=== PATIENT | female | born 1995 | race African-American/Black ===

== ENCOUNTER 2017-06-17 09:52 | Emergency (ER) | payer BC, OTHER, SELFPAY ==
[2017-06-17] MEDS ORDERED: AMOXicillin 250 MG CAP ONE (11:26)
== END 2017-06-17 11:30 | disposition home or self-care (01) ==
LOC: MADERS 09:52
DX: H01.9 Unspecified inflammation of eyelid (principal)
CPT/HCPCS: 99282

== ENCOUNTER 2017-08-06 09:57 | Emergency (ER) | payer SELFPAY | END 2017-08-06 10:30 | disposition home or self-care (01) | LOC: MADERS 09:57 | DX: H00.014 Hordeolum externum left upper eyelid (principal); E66.9 Obesity, unspecified | CPT/HCPCS: 99283 ==

== ENCOUNTER 2018-02-22 21:12 | Emergency (ER) | payer BC, SELFPAY ==
[2018-02-22] MEDS ORDERED: predniSONE 20 MG TAB ONE (22:01)
== END 2018-02-22 22:05 | disposition home or self-care (01) ==
LOC: MADERS 21:12
DX: J06.9 Acute upper respiratory infection, unspecified (principal); E66.9 Obesity, unspecified
CPT/HCPCS: 87081; 87430; 99283; J7506

== ENCOUNTER 2018-03-22 20:22 | Emergency (ER) | payer BC | END 2018-03-22 20:56 | disposition home or self-care (01) | LOC: MADERS 20:22 | DX: S00.03XA Contusion of scalp, initial encounter (principal); W01.0XXA Fall on same level from slipping, tripping and stumbling without subsequent striking against object, initial encounter | CPT/HCPCS: 99283 ==

== ENCOUNTER 2018-08-20 19:04 | Emergency (ER) | payer BC ==
[2018-08-20 19:57] LABS: #Basophils 0.1 thou/uL (0.0-0.2); #Eosinphils 0.1 thou/uL (0.0-0.7); #Lymphocytes 3.8 thou/uL (1.20-3.40); #Monocytes 0.5 thou/uL (0.11-0.59); #Neutrophils 4.6 thou/uL (1.40-6.50); %Basophils 1.4 % (0.0-1.0); %Eosinophils 0.9 % (0.0-10.0); %Lymphocytes 41.4 % (21.0-51.0); %Monocytes 5.2 % (0.0-10.0); %Neutrophils 51.2 % (42.0-75.0); Hemoglobin 11.8 g/dL (12.0-16.0); Mean Corpuscular HGB CONC 31.6 g/dL (32.0-36.0); Mean Corpuscular Hemoglobin 26.7 pg (27.0-31.0); Mean Corpuscular Volume 84.5 fL (78.0-98.0); Mean Platelet Volume 7.5 fL (7.4-10.4); Platelet Count 333 thou/uL (130-400); RBC Distribution Width 13.5 % (11.5-14.5); Red Blood Cell (RBC) Count 4.43 mill/uL (4.20-5.40); White Blood Cell (WBC) Count 9.1 thou/uL (4.8-10.8)
[2018-08-20] MEDS ORDERED: Ondansetron ODT 4 MG TAB ONE (20:08)
[2018-08-20 20:12] LABS: BHCG - Serum Negative (NEGATIVE); Pregs Control Background? CLEAR/WHITE (CLR/WHITE); Pregs Control Bar Appear? YES (CONTROL BAR)
[2018-08-20 20:17] LABS: ALT (SGPT) 19 U/L (8-55); AST (SGOT) 16 U/L (5-34); Albumin 4.1 g/dL (3.5-5.0); Alkaline Phosphatase 34 U/L (40-150); Anion Gap 15 mmol/L (10-20); BUN (Urea Nitrogen) 7 mg/dL (7.0-18.7); Bilirubin, Total 0.2 mg/dL (0.2-1.2); Calc. Creatinine Clearance 0 mL/min (70-130); Calcium 9.3 mg/dL (7.8-10.44); Carbon Dioxide 25 mmol/L (22-29); Chloride 105 mmol/L (98-107); Estimated GFR-MDRD Greater than 90; Globulin 3.6 g/dL (2.4-3.5); Glucose 103 mg/dL (70-105); Lipase 38 U/L (8-78); Potassium 3.8 mmol/L (3.5-5.1); Protein, Total 7.7 g/dL (6.0-8.3); Sodium 141 mmol/L (136-145)
[2018-08-20 20:27] LABS: Bilirubin Negative (Negative); Blood, Urine Trace (Negative); Clarity Clear (Clear); Glucose, Urine (Dipstick) Negative (Negative); Leukocyte Small (Negative); Nitrite Negative (Negative); Protein, Urine (Dipstick) Negative (Neg-Trace); Urobilinogen 0.2 mg/dL (Less than 2)
[2018-08-20 20:34] LABS: Bacteria/HPF None Seen HPF (None Seen)
[2018-08-20] MEDS ORDERED: Metoclopramide HCl 10 MG TAB ONE (20:43)
== END 2018-08-20 20:40 | disposition home or self-care (01) ==
LOC: MADERS 19:04
DX: D64.9 Anemia, unspecified (principal); R11.2 Nausea with vomiting, unspecified; R19.7 Diarrhea, unspecified; E66.9 Obesity, unspecified
CPT/HCPCS: 36415; 80053; 81003; 81015; 83605; 83690; 84703; 85025; 99284; J8597; Q0162

== ENCOUNTER 2019-04-22 23:23 | Emergency (ER) | payer BC, SELFPAY ==
[2019-04-23] MEDS ORDERED: Donnatal Elixir 16.2 MG/5 ML UDCUP ONE
[2019-04-23] MEDS ORDERED: Lidocaine Viscous Sol 2% 15 ml UD Cup ONE (00:01)
[2019-04-23] MEDS ORDERED: Mag-Al Plus 1200 MG/1200 MG/120 MG/30 ML UDCUP ONE (00:01)
== END 2019-04-23 00:55 | disposition home or self-care (01) ==
LOC: MADERS 23:23
DX: R12 Heartburn (principal)
CPT/HCPCS: 93005

== ENCOUNTER 2019-10-08 07:52 | Outpatient (CLI) | payer OTHER | END 2019-10-08 07:53 | disposition home or self-care (01) | LOC: MADLABBHPM 07:52 | PROVIDERS: ATTEND Family Medicine | DX: O09.893 Supervision of other high risk pregnancies, third trimester (principal) | CPT/HCPCS: 36415; 82951; 82952 ==

== ENCOUNTER 2022-06-28 10:38 | Emergency (ER) | payer MEDICAID, OTHER ==
[2022-06-28] MEDS ORDERED: Dicyclomine 20 MG/2 ML VIAL ONE (11:00)
[2022-06-28] MEDS ORDERED: Ondansetron ODT 4 MG TAB ONE (11:00)
[2022-06-28 11:03] LABS: Bilirubin Negative (Negative); Blood, Urine Moderate (Negative); Clarity Clear (Clear); Glucose, Urine (Dipstick) Negative (Negative); Ketone, Urine Negative (Negative); Leukocyte Small (Negative); Nitrite Negative (Negative); Protein, Urine (Dipstick) 30 mg/dL (Neg-Trace); Specific Gravity, Urine 1.025 (1.005-1.030); Urobilinogen 0.2 mg/dL (Less than 2)
[2022-06-28 11:13] LABS: Bacteria/HPF 1+ HPF (None Seen)
[2022-06-28 11:14] LABS: Pregnancy Test - Urine (BHCG) Negative (Negative); Pregu Control Background? CLEAR/WHITE (CLR/WHITE); Pregu Control Bar Appear? YES (CONTROL BAR); Specific Gravity 1.025 (1.002-1.036)
[2022-06-28 11:30] LABS: ALT (SGPT) 18 U/L (8-55); AST (SGOT) 13 U/L (5-34); Albumin 4.3 g/dL (3.5-5.0); Alkaline Phosphatase 36 U/L (40-110); Anion Gap 15 mmol/L (10-20); BUN (Urea Nitrogen) 9 mg/dL (7.0-18.7); Bilirubin, Total 0.3 mg/dL (0.2-1.2); Calc. Creatinine Clearance 0 mL/min (70-130); Calcium 9.4 mg/dL (7.8-10.44); Carbon Dioxide 20 mmol/L (22-29); Chloride 105 mmol/L (98-107); Estimated GFR 117; Globulin 3.6 g/dL (2.4-3.5); Glucose 117 mg/dL (70-105); Lipase 32 U/L (8-78); Potassium 3.8 mmol/L (3.5-5.1); Protein, Total 7.9 g/dL (6.0-8.3); Sodium 136 mmol/L (136-145)
[2022-06-28 11:32] LABS: Anisocytosis SLIGHT = 6-15 cells (100X) (0-5/hpf); Band 1 % (5-11); Eosinophils 1 % (0-10); Hemoglobin 11.1 g/dL (12.0-16.0); Hypochromia SLIGHT = 6-15 cells (100X) (0-5/hpf); Lymphocytes 26 % (21-51); MDiff Complete? YES; Mean Corpuscular HGB CONC 31.4 g/dL (32.0-36.0); Mean Corpuscular Hemoglobin 24.7 pg (27.0-31.0); Mean Corpuscular Volume 78.5 fl (78.0-98.0); Mean Platelet Volume 9.3 fL (7.4-10.4); Monocytes 3 % (0-10); Neutrophil 69 % (42-75); Nucleated RBC (Manual Ct) 1 % (0); Platelet Count 400 10x3/uL (130-400); Platelet Morphology Comment Appears Adequate; RBC Distribution Width 15.2 % (11.5-14.5); Red Blood Cell (RBC) Count 4.52 mill/uL (4.20-5.40); White Blood Cell (WBC) Count 8.5 10x3/uL (4.8-10.8)
== END 2022-06-28 12:02 | disposition home or self-care (01) ==
LOC: MADERS 10:38
DX: R10.13 Epigastric pain (principal); R10.12 Left upper quadrant pain; R11.2 Nausea with vomiting, unspecified
CPT/HCPCS: 36415; 80053; 81003; 81015; 81025; 83690; 85025; 96372; 99283; Q0162

== ENCOUNTER 2025-01-10 01:36 | Emergency (ER) | payer MEDICAID, OTHER, SELFPAY | END 2025-01-10 03:07 | disposition home or self-care (01) | LOC: MADERS 01:36 | DX: J06.9 Acute upper respiratory infection, unspecified (principal) | CPT/HCPCS: 99283 ==